=== PATIENT | female | born 1975 | race Caucasian/White ===

== ENCOUNTER 2016-03-21 17:52 | Emergency (ER) | payer MEDICAID ==
[~2016-03-21] VITALS: Ht 170.2 cm; Wt 95.3 kg
[2016-03-21 19:04] LABS: Basophils # (auto) 0.2 uL; Basophils % (auto) 1.5 % (0.0-2.0); Eosinophils # (auto) 0.6 uL; Eosinophils % (auto) 4.8 % (0.0-7.0); Hematocrit 45.5 % (36.0-46.0); Hemoglobin 14.8 g/dL (12.2-16.2); Lymphocytes # (auto) 3.6 uL; Lymphocytes % (auto) 28.1 % (10.0-50.0); Mean Corpuscular Hemoglobin 29.9 pg (28.0-32.0); Mean Corpuscular Hgb Conc. 32.6 g/dL (32.0-36.0); Mean Corpuscular Volume 91.8 fL (80.0-100.0); Mean Platelet Volume 8.2 fL (7.4-10.4); Monocytes # (auto) 0.8 uL; Neutrophils # (auto) 7.7 uL; Neutrophils % (auto) 59.6 % (37.0-80.0); Platelet Count (auto) 294 10^3/uL (140-450); Red Cell Distribution Width 13.8 % (11.6-16.0); White Blood Cell 12.9 10^3/uL (4.4-10.8)
[2016-03-21 19:22] LABS: Albumin 3.9 g/dL (3.4-5.0); BUN/Creatinine Ratio 21.9; Calcium 8.8 mg/dL (8.5-10.1)
[2016-03-21 19:25] LABS: Bilirubin, Total 0.2 mg/dL (0.2-1.0); Total Protein 7.7 g/dL (6.4-8.2)
[2016-03-22] MEDS ORDERED: HYDROcodone-ACET 5/325MG TAB PO ONE (01:00)
[2016-03-22] MEDS ORDERED: cefTRIAXone SOD 1,000 MG VL ONE (01:14)
[2016-03-22] MEDS ORDERED: cefTRIAXone W LIDOCAINE 1 GM IM IM ONE (01:15)
[2016-03-22 02:06] VITALS: BP 129/70
== END 2016-03-22 02:07 | disposition home or self-care (01) ==
LOC: ER 18:15
DX: F41.9 Anxiety disorder, unspecified (principal); G43.909 Migraine, unspecified, not intractable, without status migrainosus; M54.9 Dorsalgia, unspecified; G89.29 Other chronic pain; F17.210 Nicotine dependence, cigarettes, uncomplicated
CPT/HCPCS: 36415; 70450; 80053; 85025; 93005; 96372; 99285; J0696

== ENCOUNTER 2016-05-15 09:07 | Emergency (ER) | payer MEDICAID ==
[~2016-05-15] VITALS: Ht 170.2 cm; Wt 88.9 kg
[2016-05-15 09:37] VITALS: BP 157/69
== END 2016-05-15 10:02 | disposition home or self-care (01) ==
LOC: ER 09:07
DX: J45.909 Unspecified asthma, uncomplicated (principal); J20.9 Acute bronchitis, unspecified; F17.210 Nicotine dependence, cigarettes, uncomplicated

== ENCOUNTER 2021-01-13 09:17 | Emergency (ER) | payer OTHER, MEDICAID ==
[~2021-01-13] VITALS: Ht 170.2 cm; Wt 82.6 kg
[2021-01-13 09:55] VITALS: BP 139/78
== END 2021-01-13 11:19 | disposition home or self-care (01) ==
LOC: ER 09:17
DX: U07.1 COVID-19 (principal); J03.90 Acute tonsillitis, unspecified; J40 Bronchitis, not specified as acute or chronic; I10 Essential (primary) hypertension; F17.210 Nicotine dependence, cigarettes, uncomplicated; G89.29 Other chronic pain; M54.9 Dorsalgia, unspecified; Z90.710 Acquired absence of both cervix and uterus
CPT/HCPCS: 36415; 71045; 87426; A4565

== ENCOUNTER 2021-04-12 17:21 | Emergency (ER) | payer OTHER, MEDICAID ==
[~2021-04-12] VITALS: Ht 170.2 cm; Wt 82.6 kg
[2021-04-12] MEDS ORDERED: PER60TP TOP (18:23)
[2021-04-12 18:40] VITALS: BP 130/80
== END 2021-04-12 18:42 | disposition home or self-care (01) ==
LOC: ER 17:21
DX: B86 Scabies (principal); I10 Essential (primary) hypertension; J45.909 Unspecified asthma, uncomplicated; F17.210 Nicotine dependence, cigarettes, uncomplicated; Z90.710 Acquired absence of both cervix and uterus